=== PATIENT | male | born 1980 | race Caucasian/White ===

== ENCOUNTER 2018-09-11 15:13 | Emergency (ER) | payer MEDICAID ==
[~2018-09-11] VITALS: Ht 180.3 cm; Wt 72.6 kg
--- NOTE | 2018-09-11 15:13 | NUR ---
BIB SELF W C/O L HIP PAIN/ABSCESS X 2 WEEKS. ALSO C/O R EAR DISCOMFORT X 1 MONTH. TO ER BED 12, HOOKED TO MONITOR, CHANGED TO GOWNoelle, AWAITING MD EVERETT
--- NOTE | 2018-09-11 15:46 | NUR ---
TIBURCIO WHITTINGTON AT BEDSIDE FOR EVAL.
[2018-09-11] MEDS ORDERED: LIDOCAINE 1%-EPI 1:100,000 20 ML VIAL ONE (15:59)
[2018-09-11] MEDS ORDERED: LIDOCAINE 1%-EPI 1:100,000 20 ML VIAL TP ONE (16:00)
--- NOTE | 2018-09-11 16:05 | NUR ---
TIBURCIO WHITTINGTON AT BEDSIDE FOR I&D
--- NOTE | 2018-09-11 17:11 | NUR ---
Patient discharged to home in stable condition. Written and verbal after care instructions given. Patient verbalizes understanding of instruction.
[2018-09-11 17:14] VITALS: BP 128/79
== END 2018-09-11 17:15 | disposition home or self-care (01) ==
LOC: ER 15:25
DX: L02.416 Cutaneous abscess of left lower limb (principal); F19.10 Other psychoactive substance abuse, uncomplicated; H60.91 Unspecified otitis externa, right ear
CPT/HCPCS: 10060; 99283; A4606; A6402; A6407; J3490

== ENCOUNTER 2018-09-14 19:37 | Emergency (ER) | payer MEDICAID ==
[~2018-09-14] VITALS: Ht 177.8 cm; Wt 72.6 kg
[2018-09-14 20:06] VITALS: BP 135/93
== END 2018-09-14 21:20 | disposition home or self-care (01) ==
LOC: ER 19:41
DX: L02.416 Cutaneous abscess of left lower limb (principal); F15.90 Other stimulant use, unspecified, uncomplicated
CPT/HCPCS: 99283; A6402 ×2; A6407

== ENCOUNTER 2019-12-17 23:14 | Emergency (ER) | payer MEDICAID ==
[~2019-12-17] VITALS: Ht 177.8 cm; Wt 70.3 kg
--- NOTE | 2019-12-18 00:01 | NUR ---
PATIENT CAME TO ER BED 4 C/O RIGHT ANTERIOR DISTAL ABSCESS FOR 1.5x WEEKS. AREA IS WARM WITH NO OPEN WOUND NOR AND PURULENT DRAINAGE. AAOX4. NO SOB. BREATHING EVENLY AND UNLABORED ON ROOM AIR. AMBULATORY WITH A STEADY GAIT.
--- NOTE | 2019-12-18 00:21 | NUR ---
AT BEDSIDE FOR INCISION AND DRAINAGE.
[2019-12-18] MEDS ORDERED: LIDOCAINE 1%-EPI 1:100,000 20 ML VIAL ONE (00:46)
[2019-12-18 02:20] VITALS: BP 123/76
--- NOTE | 2019-12-18 02:20 | NUR ---
Prescriptions given to patient.
--- NOTE | 2019-12-18 02:20 | NUR ---
Patient discharged to home in stable condition. Written and verbal after care instructions given. Patient verbalizes understanding of instruction.
== END 2019-12-18 02:21 | disposition home or self-care (01) ==
LOC: ER 23:18
DX: L02.415 Cutaneous abscess of right lower limb (principal); F19.90 Other psychoactive substance use, unspecified, uncomplicated
CPT/HCPCS: 10060; 99283; A6403; A6407; J3490

== ENCOUNTER 2020-10-14 07:49 | Emergency (ER) | payer MEDICAID ==
[~2020-10-14] VITALS: Ht 175.3 cm; Wt 70.3 kg
--- NOTE | 2020-10-14 07:49 | NUR ---
PT BIB SELF C/O COUGH AND CONGESTION FOR 2 WEEKS. 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 WILL CONTINUE TO MONITOR.
--- NOTE | 2020-10-14 08:03 | NUR ---
AT BEDSIDE FOR EVAL.
--- NOTE | 2020-10-14 08:20 | NUR ---
COVID SPECIMEN OBTAINED AND SENT TO LAB.
--- NOTE | 2020-10-14 08:22 | NUR ---
OUTSOLE SKIVER AT BEDSIDE FOR XRAY.
[2020-10-14] MEDS ORDERED: predniSONE 20 MG TABLET ONE (08:43)
[2020-10-14] MEDS ORDERED: PRED50TA PO (08:59)
[2020-10-14] MEDS ORDERED: ALBU8.5H8 INH (08:59)
[2020-10-14] MEDS ORDERED: predniSONE 20 MG TABLET PO ONE (09:00)
[2020-10-14] MEDS ORDERED: IPRATROPIUM NEB FS 0.5 MG/2.5 ML AMPUL.NEB NEB ONE (09:30)
[2020-10-14] MEDS ORDERED: ALBUTEROL FS 2.5 MG/3 ML VIAL.NEB NEB ONE (09:30)
[2020-10-14] MEDS ORDERED: IPRATROPIUM NEB FS 0.5 MG/2.5 ML AMPUL.NEB ONE (09:34)
[2020-10-14] MEDS ORDERED: ALBUTEROL FS 2.5 MG/3 ML VIAL.NEB ONE (09:34)
--- NOTE | 2020-10-14 09:35 | NUR ---
RT AT BEDSIDE FOR BREATHING TX.
[2020-10-14 10:22] VITALS: BP 118/72
--- NOTE | 2020-10-14 10:22 | NUR ---
Patient given written and verbal discharge instructions. Patient verbalizes understanding of instructions. Patient is ambulatory with steady gait. Refuses offer of assisted placement. Patient given list of available shelters in surrounding area.
== END 2020-10-14 10:23 | disposition home or self-care (01) ==
LOC: ER 07:53
DX: J45.909 Unspecified asthma, uncomplicated (principal); F17.210 Nicotine dependence, cigarettes, uncomplicated; Z20.822 Contact with and (suspected) exposure to COVID-19
CPT/HCPCS: 71045; 87426; 94640; 99284; 99406; C9803; J7512

== ENCOUNTER 2020-12-29 10:51 | Emergency (ER) | payer MEDICAID ==
[~2020-12-29] VITALS: Ht 167.6 cm; Wt 68.0 kg
[~2020-12-29 10:51] MED LIST: ALBU8.5H8 INH; PRED50TA PO
[2020-12-29] MEDS ORDERED: LIDOCAINE HCL/MPF 1% 30 ML VIAL IJ ONE (11:16)
--- NOTE | 2020-12-29 11:20 | NUR ---
The patient is biba for c/o right hand swelling/pain xcouple days Denies injury - unable to recall even. In room air and denies SOB. Respiration regular and unlabored. Will continue to monitor the patient.
--- NOTE | 2020-12-29 11:42 | NUR ---
DR. AVALOS AT BEDSIDE FOR I&D
[2020-12-29] MEDS: LIDOCAINE 1% INJ 50 ML MDV IJ ONE (11:48)
--- NOTE | 2020-12-29 12:26 | NUR ---
The patient is having lunch.
[2020-12-29] MEDS ORDERED: SULFAMETH/TRIMETH 800/160 MG 1 UDTAB TABLET ONE (12:35)
[2020-12-29] MEDS ORDERED: CEPHALEXIN MONOHYDRATE 500 MG CAPSULE PO ONE (12:35)
[2020-12-29] MEDS ORDERED: ALBU8.5H8 INH (13:17)
[2020-12-29] MEDS ORDERED: CEPH500C2 PO (13:17)
[2020-12-29] MEDS ORDERED: SULF1TAB48 PO (13:17)
[2020-12-29] MEDS ORDERED: PRED50TA PO (13:17)
[2020-12-29] MEDS: CEPHALEXIN MONOHYDRATE 500 MG CAPSULE PO ONE (13:18)
[2020-12-29] MEDS: SULFAMETH/TRIMETH 800/160 MG 1 UDTAB TABLET PO ONE (13:18)
[2020-12-29] MEDS ORDERED: IBUP-1955 PO (13:20)
[2020-12-29 13:49] VITALS: BP 125/80
--- NOTE | 2020-12-29 14:15 | NUR ---
"Household Assistant consult: guest services ambassador consult requested for homelessness and substance use. Patient is a 40-year-old, male. SW met with patient at his bedside in the emergency department. Patient was calm and resting. Patient was alert and oriented x4. Per chart, patient was brought in by ambulance 12/29/20 with complaints of hand pain and swelling. Patient stated that he is currently homeless and has been homeless for the last 4-5 years. Patient currently has no source of income. Patient stated that is has a history of alcohol use he drinks three tall cans of beer, every other day. Patient denied recent drug use but reported heroin use from 5 years ago. Patient denied history of mental illness. Patient denied suicidal or homicidal ideation. SW offered the patient homeless and substance use resources and patient accepted the resources, thanking SW. Patient signed the homeless waiver and SW filed the waiver in the patients chart. SW discussed discharge plans with the patient and patient stated that he will discharge to the street. PLAN: Patient will return to his prior living arrangement on the street. No further SS intervention at this time, however, SW will remain available as needed. RESOURCES: Year-round shelters: [facility] [place] [address] [place], [place] [id number] ; [facility] [place] [address] [place] [address]; [facility] [id number] [facility] [address] SPA 4 | [facility] Recreation [place] Provider: First to Serve Address: [address], [address] # of Beds: 48 Population Served: [facility] Provider: First to Serve Address: [address] [facility], [address] # of Beds: 73 Population Served: [facility] 6 | [facility] Provider: Home at Last Address: [address] [facility], [address] # of Beds: 63 Population Served: [facility] 3 | [facility]: Kristine of [place] Address: [address] [place] [address] # of Beds: 75 Population Served: [place] S[place] 8 | [facility] Provider: Marck HERNANDEZ Address: [address] [facility], [address] # of Beds: 80 Population Served: [place] S[place] 1 | [facility] Provider: Marck HERNANDEZ Address: [address] [place] [address], [address] # of Beds: 85 Population Served: [place] S[place] 2 | [facility] Provider: [facility] Address: Confidential (please call for location) # of Beds: 52 Population Served: [facility] SPA 4 | [facility] Provider: [facility] Address: [address] [facility], [address] # of Beds: 49 Population Served: [facility] Provider: First To Serve Address: [address] [place] [address] # of Beds: 27 Population Served: Carmen Hygiene: [facility]: [address] [facility] ; [place] [facility] [address] [facility] ; [facility] [address] [facility] . Food Resources: [place] [employer] [facility] at [facility]- [address] [facility]; Meet Each Need with Dignity ([facility]) [address] [facility]; [facility] [address] [facility]; [facility] [address] [facility]. Mental Health resources provided: [facility] [address] [place] [address] ; [facility] [address] [facility] [address], [place] [address] ; Lissette Fulton [facility] Mental [facility] [address] [place] [address] ; [facility] [place], [place] [address] Healthcare Clinics: [facility] [address] [facility], [address] [place]. [place] ; [facility] [address] [facility] [address] [place] [address]; [facility] [address] [facility]. [place] [phone] Counseling--Outpatient [facility] [address] [facility], [place] [address] (Specializes in in-depth psychotherapy for emotional distress: anxiety, depression, interpersonal conflicts, life transitions, childhood abuse) PSYCHIATRIC OUTPATIENT SERVICES [facility] Partial Hospitalization and Intensive Outpatient Program (Managed Care and [place] Only) [address] [facility] 024138 [facility] Partial Hospitalization and Outpatient Program [address] [facility] [place], [place] [phone] [facility] Partial Hospitalization and Outpatient Program [address] [facility]. [place], [place] [id number] [facility] [place] [facility] [address] [facility]. [address] [place], [place] [address] [facility] Partial Hospitalization and Outpatient Program [address] [place], [place] [phone] Substance use resources provided included: [facility] Substance Abuse Self-Helpline (SAS) ; [facility] [address] [facility] [place]. [place] [address] ; [facility] [address] [facility] [address] ; [facility] [address] [facility] [address] ; [facility] [address] [place] [address] ; [facility] [address] [place], [place] [address]vd. [facility] [phone] ; [facility]; [facility] [place]; [facility] [place]; Alcoholics Anonymous -SFV"
== END 2020-12-29 13:49 | disposition home or self-care (01) ==
LOC: ER 10:52
DX: L02.511 Cutaneous abscess of right hand (principal); L03.011 Cellulitis of right finger; J45.909 Unspecified asthma, uncomplicated; G89.29 Other chronic pain; M54.41 Lumbago with sciatica, right side; Z79.899 Other long term (current) drug therapy
CPT/HCPCS: 10060; 99283; J3490

== ENCOUNTER 2021-05-02 00:50 | Emergency (ER) | payer MEDICAID ==
[~2021-05-02] VITALS: Ht 167.6 cm; Wt 77.1 kg
[~2021-05-02 00:50] MED LIST changes: +CEPH500C2 PO; +IBUP-1955 PO; +SULF1TAB48 PO
--- NOTE | 2021-05-02 01:04 | NUR ---
CALLED FOR TRIAGE , NO ANSWER
--- NOTE | 2021-05-02 01:36 | NUR ---
CALLED PT FOR TRIAGE. NO ANSWER
--- NOTE | 2021-05-02 02:31 | NUR ---
BIBS C/O SOB X 5 DAYS AND R HAND CELLULITIS THAT HAS PROGRESSIVELY WORSTENED WELL SOB. PT STATES HE WAS AT A HOSPITAL A FEW DAYS AGO BUT WAS UNABLE TO GET TREATED FOR HIS HAND. HIS R HAND APPEARS SIGNIFICANTLY INFECTED WITH ERYTHEMA AND EDEMA PRESENT AT THE RIGHT HAND EXTENDING UP THE FOREARM WELL AN ABSCESS TO THE R HAND. PT DENIES IV DRUG USE AND STATES HE BELIEVES IT WAS A SPIDER BITE. PT ALSO ENDORSING HE IS SOB WITH RHONCHI AND EXPIRITORY WHEEZES NOTED BILATERALLY IN ADDITION TO PRODUCTIVE COUGH. PT SATTING 87% RA IN MILD RESPIRITORY DISTRESS RR20. PT PLACED ON 5LPM NC AND O2 INCREASED TO 99%. PT CHANGED INTO A GOWN AND PLACED ON MONITOR. WAS AT THE BEDSIDE FOR EVAL.
[2021-05-02] MEDS ORDERED: IV NS 0.9% 1,000 ML BAG IV ONE (03:00)
[2021-05-02] MEDS ORDERED: CEFTRIAXONE 1GM BAG (ER ONLY) 50 ML IV ONE ×2 (03:00→03:39)
[2021-05-02] MEDS ORDERED: HYDROMORPHONE 1 MG/1 ML DISP.SYRIN IV ONE (03:00)
[2021-05-02] MEDS ORDERED: METRONIDAZOLE 500MG/ NS 100ML 100 ML IV ONE ×2 (03:00→04:33)
[2021-05-02] MEDS ORDERED: VANCOMYCIN 1 GM in IV D5W 250 ML IV ONE (03:00)
[2021-05-02] MEDS ORDERED: ONDANSETRON HCL/PF 4 MG/2 ML VIAL IVP ONE (03:00)
[2021-05-02] MEDS ORDERED: HYDROMORPHONE 1 MG/1 ML DISP.SYRIN ONE (03:39)
[2021-05-02] MEDS ORDERED: ONDANSETRON HCL/PF 4 MG/2 ML VIAL ONE (03:39)
[2021-05-02 03:50] LABS: BASOPHILS % (AUTO) 0.2 % (0.0-2.0); EOSINOPHILS % (AUTO) 2.1 % (0.0-6.0); HEMATOCRIT 44 % (39-51); HEMOGLOBIN 14.5 g/dL (13.5-17.5); LYMPHOCYTES # (AUTO) 1.7 K/uL (0.8-4.8); LYMPHOCYTES % (AUTO) 9.4 % (20.0-44.0); MEAN CORPUSCULAR HGB CONC 33 g/dl (31.0-36.0); MEAN CORPUSCULAR VOLUME 92 fL (80-96); MONOCYTES # (AUTO) 1.2 K/uL (0.1-1.30); NEUTROPHILS # (AUTO) 14.5 K/uL (1.8-8.9); NEUTROPHILS % (AUTO) 81.3 % (43.0-81.0); PLATELET COUNT (AUTO) 440 K/uL (150-450); RED BLOOD CELL COUNT(AUTO) 4.78 MIL/uL (4.5-6.0); WHITE BLOOD COUNT (AUTO) 17.9 K/uL (4.3-11.0)
--- NOTE | 2021-05-02 04:03 | NUR ---
BACK FROM CT
[2021-05-02 04:04] LABS: CALCIUM, SERUM 8.7 mg/dL (8.5-10.1); CARBON DIOXIDE 29 mmol/L (21-32); CHLORIDE 100 mmol/L (98-107); CREATININE 0.6 mg/dL (0.6-1.3); GLUCOSE 111 mg/dL (74-106); POTASSIUM 4.5 mmol/L (3.5-5.1); SODIUM SERUM 136 mmol/L (136-145); UREA NITROGEN, BLOOD 9 mg/dL (7-18)
[2021-05-02 04:17] LABS: ALANINE AMINOTRANSFERASE 35 U/L (12-78); ALBUMIN 3.2 g/dL (3.4-5.0); ALKALINE PHOSPHATASE 70 U/L (46-116); ASPARTATE AMINOTRANSFERASE 26 U/L (15-37); BILIRUBIN,DIRECT 0.2 mg/dL (0.0-0.2); BILIRUBIN,TOTAL 0.6 mg/dL (0.2-1.0); TOTAL PROTEIN, SERUM 7.9 g/dL (6.4-8.2)
--- NOTE | 2021-05-02 05:02 | NUR ---
[facility] CALLED FOR HIGHER LEVEL OF CARE. NO CAPACITY.
--- NOTE | 2021-05-02 05:03 | NUR ---
called zander for ct read
[2021-05-02] MEDS ORDERED: ALBUTEROL FS 2.5 MG/3 ML VIAL.NEB ONE (05:13)
[2021-05-02] MEDS ORDERED: IPRATROPIUM NEB FS 0.5 MG/2.5 ML AMPUL.NEB ONE (05:13)
[2021-05-02] MEDS ORDERED: IPRATROPIUM NEB FS 0.5 MG/2.5 ML AMPUL.NEB NEB ONE (05:30)
[2021-05-02] MEDS ORDERED: ALBUTEROL FS 2.5 MG/3 ML VIAL.NEB NEB ONE (05:30)
[2021-05-02] MEDS ORDERED: predniSONE 50 MG TABLET PO ONE (05:30)
--- NOTE | 2021-05-02 05:59 | NUR ---
PT AWAKE AND ALERT BREATHING EVEN AND UNLABORED ALL VSS
[2021-05-02] MEDS ORDERED: predniSONE 20 MG TABLET ONE (06:05)
[2021-05-02] MEDS ORDERED: VANCOMYCIN 1 GM VIAL ONE (06:09)
[2021-05-02 06:12] LABS: BILIRUBIN,URINE NEGATIVE (NEGATIVE); COLOR,URINE YELLOW (YELLOW); LEUKOCYTE ESTERASE ,URINE NEGATIVE (NEGATIVE); NITRITE, URINE NEGATIVE (NEGATIVE); PH,URINE 6.5 (5.0-8.0); PROTEIN,URINE NEGATIVE (NEGATIVE); UGLUCOSE NEGATIVE (NEGATIVE); UROBILINOGEN,URINE 0.2 EU/dL (0.2)
--- NOTE | 2021-05-02 06:35 | NUR ---
[facility] CALLED FOR HIGHER LEVEL OF CARE. NO CAPACITY.
--- NOTE | 2021-05-02 06:35 | NUR ---
[facility] CALLED FOR HIGHER LEVEL OF CARE, NO DEAF INTERPRETER HAND SURGERY.
--- NOTE | 2021-05-02 06:42 | NUR ---
[facility] CALLED FOR HIGHER LEVEL OF CARE. LIMITED CAPACITY. [facility] FA[facility]
--- NOTE | 2021-05-02 06:55 | NUR ---
[facility] CALLED, NO ONCALL HAND SURGERY
--- NOTE | 2021-05-02 07:46 | NUR ---
Patient does not wish to proceed with medical care recommended by Dr. Hairston. Patient given information related to possible complications, up to and including , which could occur as a result of leaving the hospital at this time. Patient verbalizes understanding of risks involved due to leaving against medical advice. Patient has signed AMA form.
--- NOTE | 2021-05-02 07:46 | NUR ---
IV removed. Catheter intact and site benign. Pressure and 4x4 applied to site. No bleeding noted.
[2021-05-02 07:59] VITALS: BP 127/82
[2021-05-02 11:14] LABS: BACTERIA,URINE None seen /HPF (None Seen); RBC,URINE NONE SEEN /HPF (0-2); SQUAMOUS EPITHELIAL CELL,UR None Seen /HPF (None Seen); WBC,URINE NONE SEEN /HPF (0-3)
== END 2021-05-02 07:59 | disposition left against medical advice (07) ==
LOC: ER 00:53
DX: L02.511 Cutaneous abscess of right hand (principal); J40 Bronchitis, not specified as acute or chronic; F17.210 Nicotine dependence, cigarettes, uncomplicated; Z20.822 Contact with and (suspected) exposure to COVID-19; Z59.00 Homelessness unspecified; T63.301A Toxic effect of unspecified spider venom, accidental (unintentional), initial encounter; S61.451A Open bite of right hand, initial encounter; Y92.89 Other specified places as the place of occurrence of the external cause; Z53.29 Procedure and treatment not carried out because of patient's decision for other reasons; R00.0 Tachycardia, unspecified
CPT/HCPCS: 36415; 71045; 71250; 73200; 80048; 80076; 81001; 83605; 83880; 84145; 84484; 85025; 85730; 87040 ×2; 87086; 87426; 93005; 94640 ×2; 96365; 96367; 96375; 99285; 99406; C9803; J0696; J1170; J2405; J3370; J7030 ×2; J7512

== ENCOUNTER 2021-05-29 19:37 | Emergency (ER) | payer MEDICAID ==
[~2021-05-29] VITALS: Ht 167.6 cm; Wt 79.4 kg
[2021-05-29 20:31] VITALS: BP 111/73
[2021-05-29] MEDS ORDERED: CEPH500C2 PO (21:06)
[2021-05-29] MEDS ORDERED: ALBU8.5H8 INH (21:06)
[2021-05-29] MEDS ORDERED: SULF1TAB48 PO (21:06)
--- NOTE | 2021-05-29 21:25 | NUR ---
Patient discharged to home in stable condition. Written and verbal after care instructions given. Patient verbalizes understanding of instruction. RX GIVEN
== END 2021-05-29 21:40 | disposition home or self-care (01) ==
LOC: ER 19:39
DX: L03.116 Cellulitis of left lower limb (principal); L03.115 Cellulitis of right lower limb; Z76.0 Encounter for issue of repeat prescription; F17.200 Nicotine dependence, unspecified, uncomplicated; Z59.00 Homelessness unspecified; Z79.899 Other long term (current) drug therapy
CPT/HCPCS: 93970-TC